=== PATIENT | male | born 1950 | race Caucasian/White ===

== ENCOUNTER 2023-07-05 13:44 | Day surgery (SDC) | payer MEDICARE ==
[2023-06-30 11:00] VITALS: BMI 23.8
[~2023-07-05 13:44] MED LIST: ATROPINE SULFATE 0.4 MG/ML 1 ML VIAL IM ONE; LACTATED RINGERS 1,000 ML IV SCH
[2023-07-05] MEDS ORDERED: LIDOCAINE 1% INJ 10MG/ML (20 ML MDV) ONE (15:11)
[2023-07-05] MEDS ORDERED: fentaNYL (PF) 50 MCG/ML 2 ML AMP ONE (15:11)
[2023-07-05] MEDS ORDERED: PROPOFOL 10 MG/ML 20 ML VIAL IV ONE (15:11)
[2023-07-05] MEDS ORDERED: MIDAZOLAM 2 MG/2 ML VIAL ONE (15:11)
[2023-07-05] MEDS ORDERED: SUCCINYLCHOLINE CHLORIDE 200 MG/10 ML VIAL IV ONE (15:11)
[2023-07-05 16:01] VITALS: TEMP 97
--- NOTE | 2023-07-05 16:24 | XR ---
EXAMINATION TYPE: XR chest 1V portable DATE OF EXAM: 07/05/2023 Comparison: None Clinical History: 72-year-old male RLL biopsies Findings: Heart normal size. Dextroconvex scoliosis. Diffuse medium and coarse reticular opacities especially i n the periphery and lower lungs. No appreciable pneumothorax. No pleural effusion. Impression: Diffuse interstitial lung disease of unknown chronicity. Correlate for underlying pulmonary fibrosis versus other causes of interstitial lung disease such as atypical pneumonia and interstitial pneumoni tis.
[2023-07-05 16:54] VITALS: BP 142/81; PULSE 54; RESP 14
--- NOTE | 2023-07-05 17:44 | PCN ---
PROCEDURE NOTE PROCEDURES PERFORMED: Bronchoscopy, airway examination, therapeutic lavage, brushes of right lower lobe, transbronchial biopsies of right lower lobe, and bronchoalveolar lavage of right lower lobe. PREOPERATIVE DIAGNOSIS: Interstitial lung disease, rule out cryptogenic-organizing pneumonia versus sarcoid. POSTOPERATIVE DIAGNOSIS: Interstitial lung disease, rule out cryptogenic-organizing pneumonia versus sarcoid. FIRST HUSKER OPERATOR: Dr. Ching Caro. The patient's procedure took place in room #1 [facility]. There were informed consent and universal time-out. ANESTHESIA PROVIDED: General anesthesia. DESCRIPTION OF PROCEDURE: After the patient was under the effects of general anesthesia, the bronchoscope was inserted through the bronchoscope adapter connected to the endotracheal tube. The bronchoscope was seen exiting the endotracheal tube in the mid to distal trachea. The tracheal lindsey was sharp. The right and left mainstem were evaluated, and the right lung and left lung were evaluated. The right upper lobe and its 3 segments, the right middle lobe and its 2 segments, the right lower lobe and its 5 segments, left upper lobe proper and its 2 segments, lingula and its 2 segments, and left lower lobe and its 4 segments were all evaluated. There were no endobronchial masses or tumors. Next, we focused on the area of the right lower lobe. Under fluoroscopic guidance, we did brushes to the right lower lobe. Also, under fluoroscopic guidance, we did multiple transbronchial biopsies to the right lower lobe. We had at least 8 to 9 pieces in the specimen cup. There was no significant bleeding. After that, we did a formal BAL in the right lower lobe. The patient tolerated the procedure well. There was no significant bleeding. The specimen will be sent to the laboratory for analysis. The patient tolerated the procedure well. A chest x-ray will be ordered afterwards to rule out pneumothorax. The patient will be recovered, and the patient will be extubated and recovered by Anesthesia. MMODL / IJN: [id number] /
--- NOTE | 2023-07-05 18:25 | FL ---
EXAMINATION TYPE: FL bronchoscopy DATE OF EXAM: 07/05/2023 FLUOROSCOPY Fluoroscopy time of 51 seconds was used during bronchoscopy for right lower lobe biopsies. 1 image/s document/s the procedure. DAP=[id number] mGycm2
[2023-07-06 05:51] LABS: Appearance,BF Hazy (Clear); RBC, Body Fluid 1085 /UL (0-2000)
[2023-07-06 10:50] LABS: Nucleated Cells, Body Fluid 45 /UL
== END 2023-07-05 16:59 | disposition home or self-care (01) ==
LOC: ORWHC2ENDO 13:44
PROVIDERS: ATTEND Internal Medicine Critical Care Medicine
DX: J84.9 Interstitial pulmonary disease, unspecified (principal); M81.0 Age-related osteoporosis without current pathological fracture; D64.9 Anemia, unspecified; I48.91 Unspecified atrial fibrillation; I50.9 Heart failure, unspecified; K21.9 Gastro-esophageal reflux disease without esophagitis; Z79.51 Long term (current) use of inhaled steroids; Z79.82 Long term (current) use of aspirin; Z79.899 Other long term (current) drug therapy
CPT/HCPCS: 88104; 88108; 88305; 89050; 87070; 87205; 87116; 87102; 87206; 71045; 31628; 31623; 31624; J2250; J0330; J2001; J3010; J2704

== ENCOUNTER → 2023-07-28 | Outpatient (CLI) | payer MEDICARE ==
[2023-07-28 16:02] LABS: Chol/HDL Ratio 4.09 Ratio; LDL Cholesterol,Calculated 127.8 mg/dL (0.0-131.0); VLDL Calculation 19.48 mg/dL (5.00-40.00)
== END | disposition home or self-care (01) ==
LOC: LABWHC1 09:14
PROVIDERS: ATTEND Student in an Organized Health Care Education/Training Program
DX: E11.9 Type 2 diabetes mellitus without complications (principal); E78.5 Hyperlipidemia, unspecified
CPT/HCPCS: 36415; 80061; 83036

== ENCOUNTER → 2023-11-07 | Outpatient (CLI) | payer MEDICARE ==
[2023-11-07] MEDS: DENOSUMAB 60 MG/ML 1 ML SYRINGE SQ NR (08:36)
[2023-11-07 09:14] VITALS: BP 157/86; PULSE 66; RESP 16; TEMP 97.3
== END ==
LOC: PROCWHC3 08:20
PROVIDERS: ATTEND Nurse Practitioner Adult Health
DX: M81.0 Age-related osteoporosis without current pathological fracture (principal)
CPT/HCPCS: 96372; J0897

== ENCOUNTER → 2024-05-03 | Outpatient (CLI) | payer MEDICARE ==
--- NOTE | 2024-05-31 14:55 | CA ---
Transthoracic Echo Report Name: Oscar Keenan Age: 73 Gender: M : 1950 Exam Date: 05/03/2024 08:44 Exam Location: [facility] Ht (in): 64 Wt (lb): 138 Ordering Physician: Attending/Referring Phys: Alvaro Vizcarra MD Promotions Associate Emily Capone RDCS Procedure CPT: Indications: Cardiac Hx: Technical Quality: Good Contrast 1: Total Dose (mL): Contrast 2: Total Dose (mL): MEASUREMENTS (Male / Female) Normal Values 2D ECHO RV Internal Dim ED PLAX 3.3 cm LVOT Diameter 2.4 cm LV Diastolic Volume MOD BP 120.4 cm??? 67 - 155 / 56 - 104 cm??? LV Systolic Volume MOD BP 70.1 cm??? 22 - 58 / 19 - 49 cm??? LV Ejection Fraction MOD BP 41.8 % >= 55 % LV Cardiac Index MOD BP 1667.8 cm???/min???m??? LV Diastolic Volume MOD 4C 130.6 cm??? LV Systolic Volume MOD 4C 71.7 cm??? LV Ejection Fraction MOD 4C 45.1 % LV Cardiac Index MOD 4C 1951.9 cm???/min???m??? LV Diastolic Length 4C 8.4 cm LV Systolic Length 4C 7.4 cm LV Diastolic Volume MOD 2C 105.5 cm??? LV Systolic Volume MOD 2C 65.0 cm??? LV Ejection Fraction MOD 2C 38.4 % LV Cardiac Index MOD 2C 1344.4 cm???/min???m??? LV Diastolic Length 2C 8.0 cm LV Systolic Length 2C 7.0 cm LA Volume 56.2 cm??? 18 - 58 / 22 - 52 cm??? LA Volume Index 33.3 cm???/m??? 16 - 28 cm???/m??? Ascending Aorta Diameter 3.5 cm DOPPLER AV Peak Velocity 96.2 cm/s AV Peak Gradient 3.7 mmHg AV Mean Velocity 71.4 cm/s AV Mean Gradient 2.2 mmHg AV Velocity Time Integral 22.4 cm LVOT Peak Velocity 71.4 cm/s LVOT Peak Gradient 2.0 mmHg LVOT Velocity Time Integral 17.6 cm LVOT Stroke Volume 80.9 cm??? LVOT Stroke Volume Index 48.4 ml/m??? LVOT Cardiac Index 2683.3 cm???/min???m??? AV Area Cont Eq vti 3.6 cm??? AV Area Cont Eq pk 3.4 cm??? MV Area PHT 3.9 cm??? Mitral E Point Velocity 29.8 cm/s Mitral A Point Velocity 59.8 cm/s Mitral E to A Ratio 0.5 MV Deceleration Time 194.0 ms PV Peak Velocity 63.9 cm/s PV Peak Gradient 1.6 mmHg FINDINGS Left Ventricle Left ventricular ejection fraction is estimated at 35-40 %. Mildly increased left ventricular systolic volume. Moderately decreased left ventricular ejection fraction with global hypokinesis. Right Ventricle Normal right ventricular size with mild to moderately reduced function. Unable to estimate the right ventricular systolic pressure. Right Atrium Normal right atrial size. Left Atrium Mildly increased left atrial volume. Mildly increased left atrial area. Mitral Valve Structurally normal mitral valve. No evidence for mitral valve prolapse. No mitral stenosis. No mitral regurgitation. Aortic Valve Trileaflet aortic valve. No aortic valve stenosis or regurgitation. Tricuspid Valve Structurally normal tricuspid valve. No tricuspid stenosis, regurgitation or prolapse. Pulmonic Valve Structurally normal pulmonic valve. No pulmonic stenosis. No pulmonic regurgitation. Pericardium No pericardial effusion. Aorta Normal size aortic root and proximal ascending aorta. CONCLUSIONS Left ventricular ejection fraction is estimated at 35-40 %. Moderately decreased left ventricular ejection fraction with global hypokinesis. Normal right ventricular size with mild to moderately reduced function. Mild left atrial dilatation dilatation No significant valvular dysfunction Previewed by: Dr Bairon Wright (Electronically Signed) Final Date: 03 May 2024 11:36
== END | disposition home or self-care (01) ==
LOC: RADECHMAIN 08:12
DX: J84.112 Idiopathic pulmonary fibrosis (principal); I51.7 Cardiomegaly
CPT/HCPCS: 93306

== ENCOUNTER → 2024-07-23 | Outpatient (CLI) | payer MEDICARE ==
--- NOTE | 2024-07-24 16:22 | US ---
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 FINDINGS: EXAM MEASUREMENTS: Liver Length: 15.3 cm Gallbladder Wall: 0.2 cm CBD: 0.3 cm Right Kidney: 10.5 x 5.0 x 5.0 cm Pancreas: visualized portions wnl, limited by overlying midline bowel gas Liver: course echotexture Gallbladder: wnl Evidence for sonographic Stauffer's sign: no CBD: visualized portions wnl, limited by overlying bowel gas Right Kidney: fullness of renal pelvis, cortical thinning IMPRESSION: 1. Unremarkable abdomen ultrasound. [facility], , 07/24/2024 4:20 PM
== END | disposition home or self-care (01) ==
LOC: RADUSWWP 07:58
PROVIDERS: ATTEND Internal Medicine
DX: J84.112 Idiopathic pulmonary fibrosis (principal)
CPT/HCPCS: 76705

== ENCOUNTER 2024-12-28 19:59 | Emergency (ER) | payer MEDICARE ==
--- NOTE | 2024-12-28 20:23 | ED ---
Recheck HPI - General Chief Complaint: Recheck/Abnormal Lab/Rx Stated Complaint: heartburn Time Seen by Provider: 12/28/24 20:06 Source: patient, RN notes reviewed Mode of arrival: ambulatory Limitations: no limitations - History of Present Illness Initial Comments: This is a 74-year-old male with a history of GERD and pulmonary fibrosis presenting to emergency department with concerns of heartburn. He states that he has been trying to take his prescribed omeprazole and Pepto with minimal relief of symptoms. He states that he has a burning gnawing sensation in his abdomen that shoots up into his chest. Patient denies chest pain, difficulty breathing, palpitations, dizziness lightheadedness. Patient states that the heartburn is pronounced after he takes his prescribed pulmonary fibrosis medication that he scheduled to take 3 times a day. Patient has appointment scheduled with cardiology this week. - Related Data Home Medications Medication Instructions Recorded Confirmed Metoprolol Succinate (ER) [Toprol 75 mg PO DAILY 06/30/23 11/07/23 Xl] Omeprazole 20 mg PO DAILY 06/30/23 11/07/23 Previous Rx's Medication Instructions Recorded Famotidine [Pepcid] 20 mg PO BID #28 tablet 12/28/24 Allergies Allergy/AdvReac Type Severity Reaction Status Date / Time No Known Allergies Allergy Verified 12/28/24 20:04 Review of Systems ROS Statement: Those systems with pertinent positive or pertinent negative responses have been documented in the HPI. ROS Other: All systems not noted in ROS Statement are negative. Past Medical History Past Medical History: GERD/Reflux, Supraventricular Tachycardia (SVT) Additional Past Medical History / Comment(s): arthritis,PULMONARY FIBROSIS History of Any Multi-Drug Resistant Organisms: None Reported Past Surgical History: Appendectomy, Bowel Resection, Hernia Repair, Orthopedic Surgery Additional Past Surgical History / Comment(s): bowel resection colostomy diverticulitis took appendix at that time 2021 left shoulder surgery, colonoscopy, egd, 2020 hernia Past Anesthesia/Blood Transfusion Reactions: No Reported Reaction Additional Past Anesthesia/Blood Transfusion Reaction / Comment(s): no blood transfusion Past Psychological History: No Psychological Hx Reported Smoking Status: Current some day smoker Past Alcohol Use History: Occasional Past Drug Use History: Marijuana - Past Family History Father Family Medical History: Cancer General Exam Limitations: no limitations Eye exam: Present: normal appearance, PERRL, EOMI. Absent: scleral icterus, conjunctival injection, periorbital swelling Neck exam: Present: normal inspection. Absent: tenderness, meningismus, lymphadenopathy Respiratory exam: Present: normal lung sounds bilaterally. Absent: respiratory distress, wheezes, rales, rhonchi, stridor Cardiovascular Exam: Present: regular rate, normal rhythm, normal heart sounds. Absent: systolic murmur, diastolic murmur, rubs, gallop, clicks GI/Abdominal exam: Present: soft, normal bowel sounds. Absent: distended, tenderness, guarding, rebound, rigid Extremities exam: Present: normal inspection, full ROM, normal capillary refill. Absent: tenderness, pedal edema, joint swelling, calf tenderness Back exam: Present: normal inspection Neurological exam: Present: alert, oriented X3, CN II-XII intact Course Vital Signs 12/28/24 12/28/24 19:59 21:43 Temperature 97.6 F 97.9 F Pulse Rate 88 60 Respiratory 18 18 Rate Blood Pressure 146/88 120/79 O2 Sat by Pulse 90 L 98 Oximetry Medical Decision Making - Medical Decision Making Was pt. sent in by a medical professional or institution (, PA, MEDICAL STAFF SPECIALIST, urgent care, hospital, or half-way...) When possible be specific @ -No Did you speak to anyone other than the patient for history (EMS, parent, family, police, friend...)? What history was obtained from this source @ -No Did you review nursing and triage notes (agree or disagree)? Why? @ -I reviewed and agree with nursing and triage notes Were old charts reviewed (outside hosp., previous admission, EMS record, old EKG, old radiological studies, urgent care reports/EKG's, half-way records)? Report findings @ -No old charts were reviewed Differential Diagnosis (chest pain, altered mental status, abdominal pain women, abdominal pain men, vaginal bleeding, weakness, fever, dyspnea, syncope, headache, dizziness, GI bleed, back pain, seizure, CVA, palpatations, mental health, musculoskeletal)? @ -Differential Chest Pain: Stable Angina, Unstable Angina, STEMI, NSTEMI Aortic Dissection, Pneumothorax, Musculoskeletal, Esophageal Spasm GERD, Cholecystitis, Pancreatitis, Zoster, this is not meant to be an all-inclusive list. EKG interpreted by me (3pts min.). @ -EKG completed at 2028 sinus rhythm with frequent PVCs, ventricular rate 74, parable 1 asymmetry to QRS 122, QTc 409. X-rays interpreted by me (1pt min.). @ -Chest x-ray completed with increased bilateral lung markings most likely superimposed pulmonary fibrosis. CT interpreted by me (1pt min.). @ -None done U/S interpreted by me (1pt. min.). @ -None done What testing was considered but not performed or refused? (CT, X-rays, U/S, labs)? Why? @ -None What meds were considered but not given or refused? Why? @ -None Did you discuss the management of the patient with other professionals (professionals i.e. Dr., PA, MEDICAL STAFF SPECIALIST, lab, RT, psych nurse, health social work professor, mannequin molder, teacher, supervisor dog license officer, case planner)? Give summary @ -No Was smoking cessation discussed for >3mins.? @ -No Was critical care preformed (if so, how long)? @ -No Were there social determinants of health that impacted care today? How? (Homelessness, low income, unemployed, alcoholism, drug addiction, transportation, low edu. Level, literacy, decrease access to med. care, snf, rehab)? @ -No Was there de-escalation of care discussed even if they declined (Discuss DNR or withdrawal of care, Hospice)? DNR status @ -No What co-morbidities impacted this encounter? (DM, HTN, Smoking, COPD, CAD, Cancer, CVA, ARF, Chemo, Hep., AIDS, mental health diagnosis, sleep apnea, morbid obesity)? @ -None Was patient admitted / discharged? Hospital course, mention meds given and route, prescriptions, significant lab abnormalities, going to OR and other pertinent info. @ -Discharge. 74-year-old male presenting for department with heartburn symptoms. Overall patient is well-appearing. Pain is not reproducible with palpation. Initial vitals are stable. Patient is active does not 90 on room air however has history pulmonary fibrosis and states that this is at his baseli ne. Cardiac workup including chest x-ray, labs and troponin within normal. Patient provided with GI cocktail. On reevaluation states that he is feeling much better. He is provided with prescription for Pepcid and instructed follow- up with healthcare economics manager scheduled. Return parameters discussed. Case discussed with Dr. Lea Undiagnosed new problem with uncertain prognosis? @ -No Drug Therapy requiring intensive monitoring for toxicity (Heparin, Nitro, Insulin, Cardizem)? @ -No Were any procedures done? @ -No Diagnosis/symptom? @ -GERD Acute, or Chronic, or Acute on Chronic? @ -Acute Uncomplicated (without systemic symptoms) or Complicated (systemic symptoms)? @ -uncomplicated Side effects of treatment? @ -No Exacerbation, Progression, or Severe Exacerbation? @ -No Poses a threat to life or bodily function? How? (Chest pain, USA, FL, pneumonia, PE, COPD, DKA, ARF, appy, cholecystitis, CVA, Diverticulitis, Homicidal, Suicidal, threat to staff... and all critical care pts) @ -No - Lab Data Result diagrams: 12/28/24 20:28 12/28/24 20:28 Lab Results 12/28/24 12/28/24 12/28/24 Range/Units 20:28 20:28 20:28 WBC 8.81 (4.50-10.00) 10*3/uL RBC 4.31 L (4.40-5.60) 10*6/uL Hgb 11.9 L (13.0-17.0) g/dL Hct 35.6 L (39.6-50.0) % MCV 82.6 (80.0-97.0) fL MCH 27.6 (27.0-32.0) pg MCHC 33.4 (32.0-37.0) g/dL Plt Count 280 (140-440) 10*3/uL MPV 9.2 L (9.5-12.2) fL Immature Gran % (Auto) 0.6 % Neutrophils % 47.3 % Lymphocytes % 38.0 % Monocytes % 9.4 % Eosinophils % 3.7 % Basophils % 1.0 % Immature Gran # 0.05 H (0.00-0.04) 10*3/uL Neutrophils # 4.16 (1.80-7.70) 10*3/uL Lymphocytes # 3.35 (0.90-5.00) 10*3/uL Monocytes # 0.83 (0.20-1.00) 10*3/uL Eosinophils # 0.33 (0.04-0.35) 10*3/uL Basophils # 0.09 (0.00-0.10) 10*3/uL PT 10.4 (10.0-12.5) sec INR 0.9 (<1.2) APTT 23.6 (22.0-30.0) sec Sodium 141 (137-145) mmol/L Potassium 3.6 (3.5-5.1) mmol/L Chloride 105 (98-107) mmol/L Carbon Dioxide 25 (22-30) mmol/L Anion Gap 11 mmol/L BUN 12 (9-20) mg/dL Creatinine 0.90 (0.66-1.25) mg/dL Est GFR (CKD-EPI)AfAm >90 (>60 ml/min/1.73 sqM) Est GFR (CKD-EPI)NonAf 85 (>60 ml/min/1.73 sqM) Glucose 87 (74-99) mg/dL Calcium 9.7 (8.4-10.2) mg/dL Magnesium 1.9 (1.6-2.3) mg/dL Total Bilirubin 0.3 (0.2-1.3) mg/dL AST 32 (17-59) U/L ALT 14 (4-49) U/L Alkaline Phosphatase 116 (38-126) U/L Troponin I (0.000-0.034) ng/mL Total Protein 8.0 (6.3-8.2) g/dL Albumin 4.3 (3.5-5.0) g/dL Lipase 139 (23-300) U/L 12/28/24 Range/Units 20:28 WBC (4.50-10.00) 10*3/uL RBC (4.40-5.60) 10*6/uL Hgb (13.0-17.0) g/dL Hct (39.6-50.0) % MCV (80.0-97.0) fL MCH (27.0-32.0) pg MCHC (32.0-37.0) g/dL Plt Count (140-440) 10*3/uL MPV (9.5-12.2) fL Immature Gran % (Auto) % Neutrophils % % Lymphocytes % % Monocytes % % Eosinophils % % Basophils % % Immature Gran # (0.00-0.04) 10*3/uL Neutrophils # (1.80-7.70) 10*3/uL Lymphocytes # (0.90-5.00) 10*3/uL Monocytes # (0.20-1.00) 10*3/uL Eosinophils # (0.04-0.35) 10*3/uL Basophils # (0.00-0.10) 10*3/uL PT (10.0-12.5) sec INR (<1.2) APTT (22.0-30.0) sec Sodium (137-145) mmol/L Potassium (3.5-5.1) mmol/L Chloride (98-107) mmol/L Carbon Dioxide (22-30) mmol/L Anion Gap mmol/L BUN (9-20) mg/dL Creatinine (0.66-1.25) mg/dL Est GFR (CKD-EPI)AfAm (>60 ml/min/1.73 sqM) Est GFR (CKD-EPI)NonAf (>60 ml/min/1.73 sqM) Glucose (74-99) mg/dL Calcium (8.4-10.2) mg/dL Magnesium (1.6-2.3) mg/dL Total Bilirubin (0.2-1.3) mg/dL AST (17-59) U/L ALT (4-49) U/L Alkaline Phosphatase (38-126) U/L Troponin I <0.012 (0.000-0.034) ng/mL Total Protein (6.3-8.2) g/dL Albumin (3.5-5.0) g/dL Lipase (23-300) U/L Disposition Clinical Impression: GERD (gastroesophageal reflux disease) Disposition: HOME SELF-CARE Condition: Stable Instructions (If sedation given, give patient instructions): GERD (Gastroesophageal Reflux Disease) (ED) Additional Instructions: Please return to the Emergency Department if symptoms worsen or any other co ncerns. Follow-up as scheduled with your healthcare economics manager on 12/31/24. Prescriptions: Famotidine [Pepcid] 20 mg PO BID #28 tablet Is patient prescribed a controlled substance at d/c from ED?: No Referrals: Osmany Fields MD [Primary Care Provider] - 1-2 days Time of Disposition: 21:35
[2024-12-28 20:34] VITALS: RESP 18
[2024-12-28] MEDS: LIDOCAINE VISCOUS 2% 15 ML CUP PO ONE (20:37)
[2024-12-28] MEDS: FAMOTIDINE 20 MG/2 ML VIAL IV STA (20:39)
[2024-12-28] MEDS: MAG HYDROX/AL HYDROX/SIMETH 30 ML CUP PO STA (20:39)
[2024-12-28 20:48] LABS: Basophils # (A) 0.09 10*3/uL (0.00-0.10); Eosinophils # (A) 0.33 10*3/uL (0.04-0.35); Eosinophils % (A) 3.7 %; HCT 35.6 % (39.6-50.0); HGB 11.9 g/dL (13.0-17.0); Lymphocytes # (A) 3.35 10*3/uL (0.90-5.00); MCH 27.6 pg (27.0-32.0); MCHC 33.4 g/dL (32.0-37.0); MCV 82.6 fL (80.0-97.0); Mean Platelet Volume 9.2 fL (9.5-12.2); Monocytes # (A) 0.83 10*3/uL (0.20-1.00); Monocytes % (A) 9.4 %; Neutrophils # (A) 4.16 10*3/uL (1.80-7.70); Neutrophils % (A) 47.3 %; Platelet Count 280 10*3/uL (140-440); RBC 4.31 10*6/uL (4.40-5.60); RDW 17.7 % (11.5-14.5); WBC 8.81 10*3/uL (4.50-10.00)
[2024-12-28 20:58] LABS: INR 0.9 (<1.2); Partial Thromboplastin Time 23.6 sec (22.0-30.0); Prothrombin Time 10.4 sec (10.0-12.5)
[2024-12-28 21:01] LABS: Potassium 3.6 mmol/L (3.5-5.1)
--- NOTE | 2024-12-28 21:01 | XR ---
EXAMINATION TYPE: XR chest 2V DATE OF EXAM: 12/28/2024 8:56 PM COMPARISON: 07/05/2023 CLINICAL INDICATION: Male, 74 years old with history of Chest Pain, TECHNIQUE: XR chest 2V view(s) obtained. FINDINGS: The heart size is normal. The pulmonary vasculature is prominent. Diffuse increased lung markings are present. Correlate for pulmonary edema. This can be superimposed on pulmonary fibrosis.. IMPRESSION: 1. Increased bilateral lung markings suspicious for diffuse pulmonary edema. This may be superimposed on pulmonary fibrosis. [facility], , 12/28/2024 8:58 PM
[2024-12-28 21:02] LABS: ALT 14 U/L (4-49); AST 32 U/L (17-59); African American GFR (CKD) >90 (>60 ml/min/1.73 sqM); Albumin 4.3 g/dL (3.5-5.0); Alkaline Phosphatase 116 U/L (38-126); Anion Gap 11 mmol/L; Blood Urea Nitrogen 12 mg/dL (9-20); Calcium 9.7 mg/dL (8.4-10.2); Carbon Dioxide 25 mmol/L (22-30); Chloride 105 mmol/L (98-107); Glucose 87 mg/dL (74-99); Lipase 139 U/L (23-300); Magnesium 1.9 mg/dL (1.6-2.3); Non-African American GFR(CKD) 85 (>60 ml/min/1.73 sqM); Sodium 141 mmol/L (137-145); Total Bilirubin 0.3 mg/dL (0.2-1.3)
[2024-12-28 21:47] VITALS: BP 120/79; PULSE 60; TEMP 97.9
== END 2024-12-28 21:51 | disposition home or self-care (01) ==
LOC: EC 19:59
DX: K21.9 Gastro-esophageal reflux disease without esophagitis (principal); F17.200 Nicotine dependence, unspecified, uncomplicated
CPT/HCPCS: 36415; 71046; 80053; 83690; 83735; 84484; 85025; 85610; 85730; 93005; 96374; 99284

== ENCOUNTER → 2025-01-15 | Outpatient (CLI) | payer MEDICARE ==
[2025-01-15 10:49] VITALS: BP 138/74; PULSE 77; RESP 16; TEMP 97.7
[2025-01-15] MEDS: DENOSUMAB 60 MG/ML 1 ML SYRINGE SQ NR (10:50)
== END ==
LOC: PROCWHC3 10:32
PROVIDERS: ATTEND Nurse Practitioner Adult Health
DX: M81.0 Age-related osteoporosis without current pathological fracture (principal)
CPT/HCPCS: 96372; J0897

== ENCOUNTER 2025-03-27 18:42 | Emergency (ER) | payer MEDICARE ==
[2025-03-27 20:04] LABS: Basophils # (A) 0.08 10*3/uL (0.00-0.10); Basophils % (A) 0.7 %; Eosinophils # (A) 0.33 10*3/uL (0.04-0.35); Eosinophils % (A) 3.0 %; HCT 39.0 % (39.6-50.0); HGB 13.0 g/dL (13.0-17.0); Lymphocytes # (A) 2.36 10*3/uL (0.90-5.00); Lymphocytes % (A) 21.7 %; MCH 28.4 pg (27.0-32.0); MCHC 33.3 g/dL (32.0-37.0); MCV 85.3 fL (80.0-97.0); Monocytes # (A) 1.30 10*3/uL (0.20-1.00); Monocytes % (A) 11.9 %; Neutrophils # (A) 6.75 10*3/uL (1.80-7.70); Neutrophils % (A) 62.1 %; Platelet Count 213 10*3/uL (140-440); RBC 4.57 10*6/uL (4.40-5.60); RDW 18.7 % (11.5-14.5); WBC 10.88 10*3/uL (4.50-10.00)
[2025-03-27 20:17] LABS: ALT 16 U/L (4-49); AST 30 U/L (17-59); African American GFR (CKD) >90 (>60 ml/min/1.73 sqM); Albumin 4.0 g/dL (3.5-5.0); Alkaline Phosphatase 94 U/L (38-126); Anion Gap 12 mmol/L; Blood Urea Nitrogen 11 mg/dL (9-20); Calcium 9.4 mg/dL (8.4-10.2); Carbon Dioxide 23 mmol/L (22-30); Chloride 103 mmol/L (98-107); Glucose 101 mg/dL (74-99); Magnesium 2.0 mg/dL (1.6-2.3); Non-African American GFR(CKD) 87 (>60 ml/min/1.73 sqM); Potassium 4.5 mmol/L (3.5-5.1); Sodium 138 mmol/L (137-145); Total Protein 7.4 g/dL (6.3-8.2)
[2025-03-27] MEDS: IPRATROPIUM-ALBUTEROL 3 ML NEB INHALATION STA (20:22)
[2025-03-27] MEDS: methylPREDNISolone SOD SUCCI 125 MG/2 ML VIAL IV STA (20:23)
[2025-03-27 20:24] LABS: NT-Pro-B-Type Natriuretic Pept 1160 pg/mL
--- NOTE | 2025-03-27 20:25 | XR ---
EXAMINATION TYPE: XR chest 2V DATE OF EXAM: 03/27/2025 8:21 PM COMPARISON: 12/28/2024 CLINICAL INDICATION: Male, 74 years old with history of difficulty breathing, TECHNIQUE: XR chest 2V view(s) obtained. FINDINGS: The heart size is normal. The pulmonary vasculature is normal. Diffuse increased lung markings are present. Correlate for pulmonary fibrosis. Findings appear simila r to a December 2024 comparison. IMPRESSION: 1. Clinical consideration for pulmonary fibrosis. Follow-up can be performed as clinically indicated [facility], , 03/27/2025 8:23 PM
[2025-03-27 20:28] LABS: INR 0.9 (<1.2); Partial Thromboplastin Time 24.7 sec (22.0-30.0); Prothrombin Time 9.9 sec (10.0-12.5)
[2025-03-27 21:59] VITALS: RESP 22
--- NOTE | 2025-03-27 22:27 | CT ---
EXAMINATION TYPE: CT chest angio for PE DATE OF EXAM: 03/27/2025 9:37 PM COMPARISON: None. CLINICAL INDICATION: Male, 74 years old with history of MINH, SHORTNESS OF BREATH, TECHNIQUE: CT of the chest is performed on a spiral scan at 2 mm thick sections. Study is performed with intravenous contrast timed for evaluation for pulmonary embolism. This will limit additional po rtions of the evaluation. 10mm MIP images reconstructed by the technologist are reviewed on the comp uter in the coronal and sagittal planes. Contrast used:100 mL of Isovue 300 with IV Contrast, (none if empty) Oral contrast used: (none if empty) CT DLP: 263.5 mGycm, Automated exposure control for dose reduction was used. FINDINGS: No persistent filling defects are evident to suggest an acute pulmonary embolism. No mediastinal or hilar adenopathy enlarged by CT criteria is evident. The ascending aorta diameter at the level of the main pulmonary artery is 3.4 cm. The main pulmonary artery diameter at the bifurcation is 3.1 cm. Moderate coronary artery calcification is present. Scattered areas of pulmonary fibrosis are present, increasing towards the lung bases. Some mild pulmo nary edema may be within the right mid lung. Moderate coronary artery calcifications present. Limited CT sections were through the upper abdomen. There is a moderate size hiatal hernia. There ma y be some hydronephrosis of the left kidney partially visualized. Note is made of compression deformities within the mid to lower thoracic spine. No posterior wall dis placement is identified IMPRESSION: 1. No acute pulmonary embolism. 2. Pulmonary fibrosis. 3. Some mild infiltrates likely pulmonary edema may be within the mid right lung. 4. Moderate size hiatal hernia. 5. Compression deformities within the thoracic spine [facility], , 03/27/2025 10:24 PM
--- NOTE | 2025-03-27 23:48 | ED ---
SOB HPI - General Chief Complaint: Shortness of Breath Stated Complaint: shortness of breath Time Seen by Provider: 03/27/25 19:30 Source: patient Mode of arrival: ambulatory Limitations: no limitations - History of Present Illness Initial Comments: 74-year-old male with history of pulmonary fibrosis presenting with chief complaint of difficulty breathing. Reports that over the last 2 nights he has had oxygen saturations down in the 70s. States that normally when he exerts himself he will get down to 88% but then with rest he comes back up into the 9 0s. States that over the past 2 nights he woken up out of his sleep feeling very short of breath and checked his oxygen saturation and noticed it was quite low. He does not wear oxygen at home. No chest pain. No lower extremity swelling. Mild cough. No fever. No nausea vomiting or abdominal pain. States that he follows with pulmonary fibrosis specialist through [facility]. - Related Data Home Medications Medication Instructions Recorded Confirmed Metoprolol Succinate (ER) [Toprol 75 mg PO DAILY 06/30/23 01/15/25 Xl] Omeprazole 20 mg PO DAILY 06/30/23 01/15/25 Previous Rx's Medication Instructions Recorded Famotidine [Pepcid] 20 mg PO BID #28 tablet 12/28/24 predniSONE [Deltasone] 60 mg PO DAILY 5 Days #15 tab 03/27/25 Allergies Allergy/AdvReac Type Severity Reaction Status Date / Time No Known Allergies Allergy Verified 03/27/25 19:18 Review of Systems ROS Statement: Those systems with pertinent positive or pertinent negative responses have been documented in the HPI. ROS Other: All systems not noted in ROS Statement are negative. Past Medical History Past Medical History: GERD/Reflux, Supraventricular Tachycardia (SVT) Additional Past Medical History / Comment(s): arthritis,PULMONARY FIBROSIS History of Any Multi-Drug Resistant Organisms: None Reported Past Surgical History: Appendectomy, Bowel Resection, Hernia Repair, Orthopedic Surgery Additional Past Surgical History / Comment(s): bowel resection colostomy diverticulitis took appendix at that time 2021 left shoulder surgery, colonoscopy, egd, 2020 hernia Past Anesthesia/Blood Transfusion Reactions: No Reported Reaction Additional Past Anesthesia/Blood Transfusion Reaction / Comment(s): no blood transfusion Past Psychological History: No Psychological Hx Reported Smoking Status: Never smoker Past Alcohol Use History: None Reported Past Drug Use History: Marijuana - Past Family History Father Family Medical History: Cancer General Exam Limitations: no limitations General appearance: alert, in no apparent distress Head exam: Present: atraumatic, normocephalic, normal inspection Eye exam: Present: normal appearance, EOMI Neck exam: Present: normal inspection. Absent: meningismus Respiratory exam: Present: normal lung sounds bilaterally. Absent: respiratory distress, wheezes, rales, rhonchi, stridor Cardiovascular Exam: Present: regular rate, normal rhythm, normal heart sounds. Absent: systolic murmur, diastolic murmur, rubs, gallop, clicks Extremities exam: Absent: pedal edema Neurological exam: Present: alert, oriented X3 Psychiatric exam: Present: normal affect, normal mood Skin exam: Present: warm, dry, normal color Course Vital Signs 03/27/25 03/27/25 03/27/25 19:16 20:22 20:29 Temperature 98.2 F Pulse Rate 67 67 70 Respiratory 24 20 20 Rate Blood Pressure 142/83 O2 Sat by Pulse 88 L Oximetry 03/27/25 03/27/25 03/27/25 21:56 22:00 23:58 Temperature 98.1 F Pulse Rate 78 71 74 Respiratory 22 22 22 Rate Blood Pressure 144/92 144/86 144/79 O2 Sat by Pulse 99 94 L 96 Oximetry Medical Decision Making - Medical Decision Making Was pt. sent in by a medical professional or institution ([facility]ANKIE Lester, [employer], urgent care, hospital, or care home...) When possible be specific @ -No Did you speak to anyone other than the patient for history (EMS, parent, family, police, friend...)? What history was obtained from this source @ -Daughter Did you review nursing and triage notes (agree or disagree)? Why? @ -I reviewed and agree with nursing and triage notes Were old charts reviewed (outside hosp., previous admission, EMS record, old EKG, old radiological studies, urgent care reports/EKG's, care home records)? Report findings @ -No old charts were reviewed Differential Diagnosis (chest pain, altered mental status, abdominal pain women, abdominal pain men, vaginal bleeding, weakness, fever, dyspnea, syncope, headache, dizziness, GI bleed, back pain, seizure, CVA, palpatations, mental health, musculoskeletal)? @ -MDM Differential Dyspnea: Coronary syndrome, arrhythmia, tamponade, asthma, COPD, pulmonary embolism, pneumonia, pneumothorax, pulmonary effusion, anaphylaxis, diabetic ketoacidosis, flailed chest, pulmonary contusion, diaphragmatic rupture, anemia, neuromuscular… this is not meant to be an all-inclusive list. EKG interpreted by me (3pts min.). @ -EKG shows sinus rhythm ventricular rate 63. MN interval 184 QRS 111 QT 385 QTc 393 X-rays interpreted by me (1pt min.). @ -Chest x-ray shows clinical consideration for pulmonary fibrosis follow-up could be performed as clinically indicated CT interpreted by me (1pt min.). @ -CTA shows no acute pulmonary embolism. Pulmonary fibrosis. Some mild infiltrates likely pulmonary edema may be within the right midlung. Moderate size hiatal hernia. Compression deformities within the thoracic spine U/S interpreted by me (1pt. min.). @ -None done What testing was considered but not performed or refused? (CT, X-rays, U/S, labs)? Why? @ -I advised that the patient be admitted, patient refuses admission at this time. What meds were considered but not given or refused? Why? @ -None Did you discuss the management of the patient with other professionals (professionals i.e. , PA, [employer], lab, RT, psych nurse, social professionals, hydraulic lift driver, teacher, environmental compliance officer, renal case manager)? Give summary @ -No Was smoking cessation discussed for >3mins.? @ -No Was critical care preformed (if so, how long)? @ -No Were there social determinants of health that impacted care today? How? (Homelessness, low income, unemployed, alcoholism, drug addiction, transportation, low edu. Level, literacy, decrease access to med. care, [facility], rehab)? @ -No Was there de-escalation of care discussed even if they declined (Discuss DNR or withdrawal of care, Hospice)? DNR status @ -No What co-morbidities impacted this encounter? (DM, HTN, Smoking, COPD, CAD, Cancer, CVA, ARF, Chemo, Hep., AIDS, mental health diagnosis, sleep apnea, morbid obesity)? @ -None Was patient admitted / discharged? Hospital course, mention meds given and route, prescriptions, significant lab abnormalities, going to OR and other pertinent info. @ -74-year-old male history of pulmonary fibrosis presenting with chief complaint of shortness of breath. Reports that his oxygen saturation has been in the 70s while at home. He does not wear oxygen at home. History and physical examination are conducted. Patient is given a breathing treatment and steroids. White count 10.88. Troponin is negative. BNP 1160. Chest x-ray shows evidence of pulmonary fibrosis. D-dimer 0.70. CT is obtained which is negative for acute PE. While here the patient has been on oxygen via nasal cannula. When ambulating short distances his saturation does drop into the 80s. I explained to the patient that it would be my recommendation that he stays for further evaluation by pulmonology and continued oxygen support. Patient reports that he is feeling better at this time and he does not want to stay. I explained to the patient that if he goes home this could at worst result in or permanent injury. Patient is A and O x 3 he is of sound mind and body and able to make his own decisions. Patient conveys verbal understanding and is able to reiterate back to me the consequences of not staying in the hospital as we recommend today. He continues to decline admission. Provided with steroids for home and I stressed that he should call his medical liaison in the morning. Patient leaves AMA. Follow-up with PCP. Report back to ER with any new or wor sening symptoms. Discussed return parameters and answered all questions. Patient conveyed verbal understanding and agreed to the plan. I discussed this case in detail with my attending Dr. Moore Undiagnosed new problem with uncertain prognosis? @ -No Drug Therapy requiring intensive monitoring for toxicity (Heparin, Nitro, Insulin, Cardizem)? @ -No Were any procedures done? @ -No Diagnosis/symptom? @ -Hypoxic respiratory failure Acute, or Chronic, or Acute on Chronic? @ -Acute Uncomplicated (without systemic symptoms) or Complicated (systemic symptoms)? @ -Complicated Side effects of treatment? @ -No Exacerbation, Progression, or Severe Exacerbation? @ -No Poses a threat to life or bodily function? How? (Chest pain, [place], [place], pneumonia, PE, COPD, DKA, ARF, appy, cholecystitis, CVA, Diverticulitis, Homicidal, Suicidal, threat to staff... and all critical care pts) @ -Yes Diagnosis/symptom? @Pulmonary fibrosis Acute, or Chronic, or Acute on Chronic? @Chronic Uncomplicated (without systemic symptoms) or Complicated (systemic symptoms)? @Complicated Side effects of treatment? @None Exacerbation, Progression, or Severe Exacerbation] @No Poses a threat to life or bodily function? @Yes - Lab Data Result diagrams: 03/27/25 19:52 03/27/25 19:52 Lab Results 03/27/25 03/27/25 03/27/25 Range/Units 19:52 19:52 19:52 WBC 10.88 H (4.50-10.00) 10*3/uL RBC 4.57 (4.40-5.60) 10*6/uL Hgb 13.0 (13.0-17.0) g/dL Hct 39.0 L (39.6-50.0) % MCV 85.3 (80.0-97.0) fL MCH 28.4 (27.0-32.0) pg MCHC 33.3 (32.0-37.0) g/dL Plt Count 213 (140-440) 10*3/uL MPV 9.2 L (9.5-12.2) fL Immature Gran % (Auto) 0.6 % Neutrophils % 62.1 % Lymphocytes % 21.7 % Monocytes % 11.9 % Eosinophils % 3.0 % Basophils % 0.7 % Immature Gran # 0.06 H (0.00-0.04) 10*3/uL Neutrophils # 6.75 (1.80-7.70) 10*3/uL Lymphocytes # 2.36 (0.90-5.00) 10*3/uL Monocytes # 1.30 H (0.20-1.00) 10*3/uL Eosinophils # 0.33 (0.04-0.35) 10*3/uL Basophils # 0.08 (0.00-0.10) 10*3/uL PT 9.9 L (10.0-12.5) sec INR 0.9 (<1.2) APTT 24.7 (22.0-30.0) sec D-Dimer 0.70 H (<0.60) mg/L FEU Sodium 138 (137-145) mmol/L Potassium 4.5 (3.5-5.1) mmol/L Chloride 103 (98-107) mmol/L Carbon Dioxide 23 (22-30) mmol/L Anion Gap 12 mmol/L BUN 11 (9-20) mg/dL Creatinine 0.85 (0.66-1.25) mg/dL Est GFR (CKD-EPI)AfAm >90 (>60 ml/min/1.73 sqM) Est GFR (CKD-EPI)NonAf 87 (>60 ml/min/1.73 sqM) Glucose 101 H (74-99) mg/dL Calcium 9.4 (8.4-10.2) mg/dL Magnesium 2.0 (1.6-2.3) mg/dL Total Bilirubin 0.4 (0.2-1.3) mg/dL AST 30 (17-59) U/L ALT 16 (4-49) U/L Alkaline Phosphatase 94 (38-126) U/L Troponin I (0.000-0.034) ng/mL NT-Pro-B Natriuret Pep 1160 pg/mL Total Protein 7.4 (6.3-8.2) g/dL Albumin 4.0 (3.5-5.0) g/dL 03/27/25 Range/Units 19:52 WBC (4.50-10.00) 10*3/uL RBC (4.40-5.60) 10*6/uL Hgb (13.0-17.0) g/dL Hct (39.6-50.0) % MCV (80.0-97.0) fL MCH (27.0-32.0) pg MCHC (32.0-37.0) g/dL Plt Count (140-440) 10*3/uL MPV (9.5-12.2) fL Immature Gran % (Auto) % Neutrophils % % Lymphocytes % % Monocytes % % Eosinophils % % Basophils % % Immature Gran # (0.00-0.04) 10*3/uL Neutrophils # (1.80-7.70) 10*3/uL Lymphocytes # (0.90-5.00) 10*3/uL Monocytes # (0.20-1.00) 10*3/uL Eosinophils # (0.04-0.35) 10*3/uL Basophils # (0.00-0.10) 10*3/uL PT (10.0-12.5) sec INR (<1.2) APTT (22.0-30.0) sec D-Dimer (<0.60) mg/L FEU Sodium (137-145) mmol/L Potassium (3.5-5.1) mmol/L Chloride (98-107) mmol/L Carbon Dioxide (22-30) mmol/L Anion Gap mmol/L BUN (9-20) mg/dL Creatinine (0.66-1.25) mg/dL Est GFR (CKD-EPI)AfAm (>60 ml/min/1.73 sqM) Est GFR (CKD-EPI)NonAf (>60 ml/min/1.73 sqM) Glucose (74-99) mg/dL Calcium (8.4-10.2) mg/dL Magnesium (1.6-2.3) mg/dL Total Bilirubin (0.2-1.3) mg/dL AST (17-59) U/L ALT (4-49) U/L Alkaline Phosphatase (38-126) U/L Troponin I <0.012 (0.000-0.034) ng/mL NT-Pro-B Natriuret Pep pg/mL Total Protein (6.3-8.2) g/dL Albumin (3.5-5.0) g/dL Disposition Clinical Impression: Hypoxic respiratory failure Disposition: HOME SELF-CARE Condition: Fair Additional Instructions: You acknowledge that today you are leaving AGAINST MEDICAL ADVICE, this means by leaving consequences may result in or permanent injury. You understand that we advised that you stay in the hospital today and explained to you the reasons why. Follow-up with your PCP and medical liaison. Report back to ER with any new or worsening symptoms. Prescriptions: predniSONE [Deltasone] 60 mg PO DAILY 5 Days #15 tab Is patient prescribed a controlled substance at d/c from ED?: No Referrals: Osmany Fields MD [Primary Care Provider] - 1-2 days Time of Disposition: 23:48
[2025-03-28 00:06] VITALS: BP 144/79; PULSE 74; TEMP 98.1
== END 2025-03-28 00:05 | disposition home or self-care (01) ==
LOC: EC 18:42
DX: J96.91 Respiratory failure, unspecified with hypoxia (principal)
CPT/HCPCS: 36415; 94640; 93005; 85379; 83880; 80053; 83735; 84484; 85025; 85610; 85730; 71046; 71275; 99285; 96374; Q9967; J2919